=== PATIENT | female | born 1970 | race Caucasian/White ===

== ENCOUNTER 2018-06-05 06:46 | Emergency (ER) | payer BC ==
[~2018-06-05] VITALS: Ht 182.9 cm; Wt 83.0 kg
[2018-06-05 06:57] VITALS: BP 117/75
[2018-06-05] MEDS: BACITRACIN ZINC OINT UDPKT TOP ONE ×2 (09:03→09:06)
== END 2018-06-05 09:30 | disposition home or self-care (01) ==
LOC: ER 06:46
DX: S20.212A Contusion of left front wall of thorax, initial encounter (principal); S80.812A Abrasion, left lower leg, initial encounter; R04.0 Epistaxis; V43.52XA Car driver injured in collision with other type car in traffic accident, initial encounter; Y93.89 Activity, other specified; Y92.411 Interstate highway as the place of occurrence of the external cause
CPT/HCPCS: 99283